=== PATIENT | male | born 1950 | race Caucasian/White ===

== ENCOUNTER → 2018-04-15 10:34 | Outpatient (CLI) | payer MEDICARE, OTHER, SELFPAY ==
[2018-04-15 11:24] LABS: Add Manual Diff / Slide Review NO; Basophils Percent Auto 0.3 % (0-2); Eosinophils Percent Auto 3.9 % (2-4); Hematocrit 44.8 % (41-53); Hemoglobin 15.4 g/dL (13.5-17.5); Lymphocytes Percent Auto 19.3 % (25-40); Mean Corpuscular HGB Conc 34.4 % (30-36); Mean Corpuscular Hemoglobin 32.1 PG (26-34); Mean Corpuscular Volume 93.3 fL (80-100); Monocytes Percent Auto 7.1 % (3-14); Neutrophils Absolute Auto 5800 /uL (3000-5900); Neutrophils Percent Auto 69.4 % (50-75); Platelet Count 176 X10^3/uL (150-400); Red Cell Distribution Width 13.2 % (11.6-14.8); White Blood Cell Count 8.4 X10^3/uL (4.5-11.0)
[2018-04-15 11:35] LABS: Alanine Aminotransferase 17 IU/L (21-72); Albumin 4.3 g/dL (3.5-5.0); Albumin Globulin Ratio 1.7 (1.0-2.8); Alkaline Phosphatase 40 U/L (38-126); Aspartate Aminotransferase 21 IU/L (17-59); Bilirubin Total 0.8 mg/dL (0.2-1.3); Blood Urea Nitrogen 14 mg/dL (9-20); Calcium 9.4 mg/dL (8.4-10.2); Carbon Dioxide 31 mmol/L (22-32); Chloride 107 mmol/L (98-107); Cholesterol 138 mg/dL (140-199); Estimated Glomerular Filt Rate > 60.0 mL/min (>60); Globulin 2.6 g/dL (1.7-4.1); Glucose 74 mg/dL (80-110); HDL Cholesterol 58 mg/dL (40-60); HEMOLYSIS < 15 (0-50); LDL Cholesterol Calculated 66 mg/dL (<100); Potassium 4.4 mmol/L (3.4-5.1); Sodium 144 mmol/L (137-145); Total Protein 6.9 g/dL (6.3-8.2); Triglycerides 72 mg/dL (35-150)
== END ==
PROVIDERS: PCP Internal Medicine; Visit Provider Internal Medicine
DX: G20 Parkinson's disease (principal); I10 Essential (primary) hypertension; E78.00 Pure hypercholesterolemia, unspecified; Z12.5 Encounter for screening for malignant neoplasm of prostate
CPT/HCPCS: 36415; 80053; 80061; 85025; G0103

== ENCOUNTER → 2019-04-08 09:26 | Outpatient (CLI) | payer MEDICARE, SELFPAY ==
[2019-04-08 10:36] LABS: Add Manual Diff / Slide Review NO; Basophils Absolute Auto 0 /uL (0-100); Basophils Percent Auto 0.2 % (0-2); Eosinophils Absolute Auto 300 /uL (0-450); Eosinophils Percent Auto 4.2 % (2-4); Hematocrit 45.3 % (41-53); Hemoglobin 16.1 g/dL (13.5-17.5); Lymphocytes Absolute Auto 1800 /uL (1100-4500); Lymphocytes Percent Auto 24.8 % (25-40); Mean Corpuscular HGB Conc 35.6 % (30-36); Mean Corpuscular Volume 92.8 fL (80-100); Monocytes Absolute Auto 600 /uL (0-900); Monocytes Percent Auto 7.6 % (3-14); Neutrophils Absolute Auto 4600 /uL (1500-7000); Neutrophils Percent Auto 63.2 % (50-75); Platelet Count 177 X10^3/uL (150-400); Red Blood Cell Count 4.88 X10^6/uL (4.5-5.9); Red Cell Distribution Width 13.1 % (11.6-14.8); White Blood Cell Count 7.3 X10^3/uL (4.5-11.0)
[2019-04-08 10:41] LABS: HEMOLYSIS < 15 (0-50); Sodium 139 mmol/L (137-145)
[2019-04-08 10:43] LABS: Alanine Aminotransferase 10 IU/L (21-72); Albumin 4.5 g/dL (3.5-5.0); Albumin Globulin Ratio 1.6 (1.0-2.8); Alkaline Phosphatase 48 U/L (38-126); Aspartate Aminotransferase 23 IU/L (17-59); BUN Creatinine Ratio 18.9 (6-22); Bilirubin Total 0.8 mg/dL (0.2-1.3); Blood Urea Nitrogen 17 mg/dL (9-20); Calcium 9.6 mg/dL (8.4-10.2); Carbon Dioxide 27 mmol/L (22-32); Chloride 103 mmol/L (98-107); Cholesterol 150 mg/dL (140-199); Estimated Glomerular Filt Rate > 60.0 mL/min (>60); Globulin 2.8 g/dL (1.7-4.1); Glucose 93 mg/dL (80-110); HDL Cholesterol 61 mg/dL (40-60); LDL Cholesterol Calculated 76 mg/dL (<100); Potassium 4.4 mmol/L (3.4-5.1); Total Protein 7.3 g/dL (6.3-8.2); Triglycerides 67 mg/dL (35-150)
[2019-04-08 11:12] LABS: Prostate Specific Antigen Scrn 1.03 ng/mL (0.1-4.0)
== END ==
PROVIDERS: PCP Internal Medicine; Visit Provider Internal Medicine
DX: Z12.5 Encounter for screening for malignant neoplasm of prostate (principal); I10 Essential (primary) hypertension; E78.00 Pure hypercholesterolemia, unspecified
CPT/HCPCS: 36415; 80053; 80061; 85025; G0103

== ENCOUNTER → 2020-03-25 06:47 | Outpatient (CLI) | payer MEDICARE, SELFPAY ==
[2020-03-25 08:23] LABS: Add Manual Diff / Slide Review NO; Basophils Absolute Auto 0 /uL (0-100); Basophils Percent Auto 0.5 % (0-2); Eosinophils Absolute Auto 500 /uL (0-450); Eosinophils Percent Auto 7.8 % (2-4); Hematocrit 43.5 % (41-53); Hemoglobin 14.6 g/dL (13.5-17.5); Lymphocytes Absolute Auto 1800 /uL (1100-4500); Lymphocytes Percent Auto 27.4 % (25-40); Mean Corpuscular HGB Conc 33.6 % (30-36); Mean Corpuscular Hemoglobin 31.8 PG (26-34); Mean Corpuscular Volume 94.7 fL (80-100); Monocytes Absolute Auto 600 /uL (0-900); Monocytes Percent Auto 8.4 % (3-14); Neutrophils Absolute Auto 3800 /uL (1500-7000); Neutrophils Percent Auto 55.9 % (50-75); Platelet Count 166 X10^3/uL (150-400); Red Blood Cell Count 4.59 X10^6/uL (4.5-5.9); Red Cell Distribution Width 13.2 % (11.6-14.8); White Blood Cell Count 6.7 X10^3/uL (4.5-11.0)
[2020-03-25 08:35] LABS: Alanine Aminotransferase 27 IU/L (<50); Albumin 4.3 g/dL (3.5-5.0); Albumin Globulin Ratio 1.6 (1.0-2.8); Alkaline Phosphatase 51 U/L (38-126); Aspartate Aminotransferase 33 IU/L (17-59); BUN Creatinine Ratio 19.8 (6-22); Bilirubin Total 0.9 mg/dL (0.2-1.3); Blood Urea Nitrogen 19 mg/dL (9-20); Calcium 9.3 mg/dL (8.4-10.2); Carbon Dioxide 30 mmol/L (22-32); Chloride 106 mmol/L (98-107); Cholesterol 153 mg/dL (140-199); Estimated Glomerular Filt Rate > 60.0 mL/min (>60); Globulin 2.7 g/dL (1.7-4.1); Glucose 92 mg/dL (80-110); HDL Cholesterol 68 mg/dL (40-60); HEMOLYSIS 16 (0-50); LDL Cholesterol Calculated 71 mg/dL (<100); Potassium 4.2 mmol/L (3.4-5.1); Sodium 139 mmol/L (137-145); Triglycerides 70 mg/dL (35-150)
== END ==
PROVIDERS: PCP Internal Medicine; Referring Provider Internal Medicine; Visit Provider Internal Medicine
DX: E78.00 Pure hypercholesterolemia, unspecified (principal)
CPT/HCPCS: 36415; 80053; 80061; 85025

== ENCOUNTER 2023-12-12 10:30 | Outpatient (RCR) | payer MEDICARE, SELFPAY ==
--- NOTE | 2023-10-01 15:32 | ST.OPIE ---
Visit Care Team Role Provider Type Nila Albarran PA-C Family Provider Advanced Damage Inside Adjuster Primary Care Provider Specialty: Medical Address: [address] [place], [address] Email: Rachell Mullins MD Attending Provider Non-Staff Referring Provider Specialty: Neurology Address: [address] [place], [address] Email: Speech-Language Pathology Initial Evaluation FIRE HOSE CURER Motor Speech Evaluation Start: 10/01/23 12:56 Freq: Status: Active Protocol: Document 10/01/23 14:10 CG (Rec: 10/01/23 15:20 CG [id number]) Motor Speech Evaluation Session Time Visit Start Time 13:00 Visit Stop Time 14:00 Total Visit Minutes 60 Visit Information Visit Number 1 Plan of Care Dates 10/01/23-12/30/23 Setting Setting Outpatient Care Next Note Type Next Note Type Treatment Note Patient History Source: [employer] ([employer]). Patient History Rao Fitzpatrick is a 73 year old male presenting to this clinic for an evaluation of motor speech and voice due to concerns of reduced intelligibility and loudness secondary to Parkinson's. He was accompanied by his , Gwen. When asked to discuss his concerns with speech, he expressed that his speech is mumbly and quiet. His has difficulty hearing him and understanding his speech. She also wears hearing aids, but her pattern marker reports that her hearing is WFL with hearing aids. He also reports that he has had some difficulty swallowing. Occasionally, he feels like he cannot initiate a swallow on solid foods. He reports no difficulties with liquids. He has not had an MBSS, nor a clinical swallow evaluation; he has never seen an FIRE HOSE CURER in the past. Currently has a referral in place to start PT in October. He and his have heard of the [employer] [facility]/ Speak Out programs but have not pursued these. His goal is to be able to be heard and understood by others, particularly his . Referral Referring Physician Dr. Rachell uMllins Reason for Referral Parkinson's, voice concerns Mental Status Mental Status Alert,Responsive,Cooperative Subjective Observations Subjective Pt presents with his for speech and voice evaluation. He presents with muffled sounding speech with imprecise consonants, variable rate ( often increased rate) and significantly reduced loudness . Additionally, he presents with shuffling gait and had difficulty initiating walking gait. It took him an extended period of time to be able to ambulate to the evaluation room due to gait difficulties. He presents as a significant fall risk. Oral Motor Lips Function Mild Impairment Pucker Reduced coordination and ROM Retraction Reduced coordination and ROM Alternating pucker/retraction Reduced coordination and ROM Involuntary Movement N/A Tongue Function Mild Impairment Observations at rest Involuntary movements 2/ PD Protrusion Appears WFL Lateralization Appears WFL Involuntary Movement Yes Respiration/Phonation Phonation Quality Breathy Function Moderately Impaired Loudness Reduced Loudness,Variable Loudness Steadiness Unsteady, variable strength of phonation Conversation Quality Breathy Duration Moderately Impaired Function Moderately Impaired Loudness Reduced Loudness,Variable Loudness Diadochokinetic Rates P^ Comments Reduced duration, short spurts between breaths T^ Comments Reduced duration, short spurts between breaths K^ Comments Reduced duration, short spurts between breaths P^T^K^ Comments Reduced duration, short spurts between breaths Speech Intelligibility Sentence Severity Moderately Impaired Conversation Severity Severely Impaired Awareness/Strategy Use Description Type of awareness/use Aware but unable to use Findings Details Motor Speech Function Moderate-Severe Impairment Type of Impairment Hypokinetic dysarthria Assessment Prognosis Rehabilitation Potential Fair Recommendations Treatment Recommended Yes Frequency 1x/week Duration 3 months Short Term Goals 1. 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 2. Pt will benefit from instruction in use of pacing strip to increase intelligibility. Manager Training Goals 1. Pt will increase intelligibility to 90% during conversational tasks. FIRE HOSE CURER Voice Resonance Evaluation Start: 10/01/23 12:56 Freq: Status: Active Protocol: Document 10/01/23 14:10 CG (Rec: 10/01/23 15:20 CG [id number]) Voice and Resonance Assessment Hearing Hearing Level Hearing Aids Auditory History Hearing aid in L ear. Deaf in R ear. Vision Vision Status Impaired Comments Wears glasses [place] Langauge Language(s) Spoken in the Home Ukrainian Educational Status Education Level Master's degree Occupational Status Occupation Status Retired Previous Therapy Previous Speech-Language Therapy No - Laryngeal Performance Maximum Phonation Time MPT Norms: Women (15-25) Men (25-35) Loudness (50-60 dB); Speaking Rate: Oral Reading of Sentences (190 Words Per Minute); Oral Reading of Paragraphs (160-170 WPM); Speaking Rate in Conversation (150-250 WPM) Maximum Phonation Time 9.2 Maximum Phonation Time Reduced Maximum Phonation Time Comments Reduced max phonation time, but increased loudness during phonation tasks. Pitch [place] Pitch [place] Reduced Range,Cessation of Voicing Muscle Tension Assessment Muscle Tension Assessment Neck,Shoulders Breath Support Breath Support At Rest Thoracic,Clavicular Breath Support Sustained Phonation Thoracic,Clavicular Breath Support Conversation Thoracic,Clavicular Speaks on Room Air Yes Postural Alignment Stance Slumped Voice Pitch Range Norms: Women (100-300 Hz) Men (70-250 Hz) Fundamental Frequency Norms: Women (Mean: 225 Hz; Range: 155-334 Hz) Men ( Mean: 128 Hz; Range: 85-196 Hz) Voice Pitch Moderately Low Voice Loudness Severely Soft/Quiet Voice Phonatory-based Quality Breathy,Hoarse Paradoxical Vocal Fold Movement No Indications Therapeutic Techniques Therapy Tactics Hard Glottal Onset,Breath Support,Increase Loudness Prognosis Rehabilitation Potential Fair - Recommendations Treatment Recommended Yes Short Term Goals 1. Pt will complete diaphragmatic inhale/exhale exercises at a ratio of 6s inhale, 12s exhale on /s/. 2. Pt will complete home exercises to increase loudness (i.e. PhorTE, LSVT) in 80% of opportunities as measured by patient report. 3. Pt will increase maximum sustained phonation time to 12 seconds with an average intensity level of at least 70dB. 4. Pt and spouse will benefit from education re vocal health and physiology of voicing in order to increase awareness of deficits and self-monitor voice performance. 5. Pt will complete outpatient Modified Barium Swallow Study for objective evaluation of swallow function. Snf Goals 1. Pt will increase sustained phonation time to 15s with an average intensity of at least 75dB. Referrals Voice/Resonance Other Referral MBSS order recommended
--- NOTE | 2023-10-01 15:33 | ST.OPPOC ---
Physical, Occupational & Speech Therapy At [facility] Visit Care Team Role Provider Type Nila Albarran PA-C Family Provider Advanced Recreation Therapist Primary Care Provider Address: [address] [place], [address] Rachell Mullins MD Attending Provider Non-Staff Referring Provider Address: [address] [place], [address] Speech Pathology Plan of Care Plan of Care Dates 10/01/23-12/30/[address] Rachell Mullins Patient History Rao Fitzpatrick is a 73 year old male presenting to this clinic for an evaluation of motor speech and voice due to concerns of reduced intelligibility and loudness secondary to Parkinson's. He was accompanied by his , Gwen. When asked to discuss his concerns with speech, he expressed that his speech is mumbly and quiet. His has difficulty hearing him and understanding his speech. She also wears hearing aids, but her dairy store manager reports that her hearing is WFL with hearing aids. He also reports that he has had some difficulty swallowing. Occasionally, he feels like he cannot initiate a swallow on solid foods. He reports no difficulties with liquids. He has not had an MBSS, nor a clinical swallow evaluation; he has never seen an MUSIC BOX MECHANIC in the past . Currently has a referral in place to start PT in October. He and his have heard of the [facility] [employer] [facility]/ Speak Out programs but have not pursued these. His goal is to be able to be heard and understood by others, particularly his . Voice/Resonance Prognosis Fair Voice/Resonance Yes Recommendations Short Term Goals 1. Pt will complete diaphragmatic inhale/exhale exercises at a ratio of 6s inhale, 12s exhale on /s/. 2. Pt will complete home exercises to increase loudness (i.e. PhorTE, LSVT) in 80% of opportunities as measured by patient report. 3. Pt will increase maximum sustained phonation time to 12 seconds with an average intensity level of at least 70dB. 4. Pt and spouse will benefit from education re vocal health and physiology of voicing in order to increase awareness of deficits and self- monitor voice performance. 5. Pt will complete outpatient Modified Barium Swallow Study for objective evaluation of swallow function. Short Term Goals 1. 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 2. Pt will benefit from instruction in use of pacing strip to increase intelligibility. Power Wheelchair Mechanic Goals 1. Pt will increase sustained phonation time to 15s with an average intensity of at least 75dB. Comment: Electronically Signed by: KAYLAH Maddox 10/01/23 3812 If you are in agreement with this Plan of Care, please return a signed and dated copy. I have reviewed this Plan of Care and certify that the skilled therapy services above are required to meet the patient?s needs. Physician Signature Date Printed Name and Credentials Printed Name and Credentials
--- NOTE | 2023-10-09 17:08 | ST.OPTN ---
Visit Care Team Role Provider Type Nila Albarran PA-C Family Provider Advanced Client Services Specialist Primary Care Provider Address: [address] [place] [address], [id number] Rachell Mullins MD Attending Provider Non-Staff Referring Provider Address: [address] [place], [address] CASTING SUPERVISOR Treatment Note CASTING SUPERVISOR Treatment Note Start: 10/09/23 16:58 Freq: Status: Active Protocol: Document 10/09/23 16:59 CG (Rec: 10/09/23 17:08 CG [id number]) Speech Pathology Treatment Note Session Time Visit Start Time 13:00 Visit Stop Time 13:48 Total Visit Minutes 48 Visit Information Visit Number 2 Plan of Care Dates 10/01/23-12/30/23 Next Note Type Next Note Type Treatment Note General Information Patient History Rao Fitzpatrick is a 73 year old male presenting to this clinic for an evaluation of motor speech and voice due to concerns of reduced intelligibility and loudness secondary to Parkinson's. He was accompanied by his , Gwen. When asked to discuss his concerns with speech, he expressed that his speech is mumbly and quiet. His has difficulty hearing him and understanding his speech. She also wears hearing aids, but her scratcher tender reports that her hearing is WFL with hearing aids. He also reports that he has had some difficulty swallowing. Occasionally, he feels like he cannot initiate a swallow on solid foods. He reports no difficulties with liquids. He has not had an MBSS, nor a clinical swallow evaluation; he has never seen an CASTING SUPERVISOR in the past. Currently has a referral in place to start PT in October. He and his have heard of the [facility] [employer] [facility]/ Speak Out programs but have not pursued these. His goal is to be able to be heard and understood by others, particularly his . Subjective Observations/Patient Presentation Pt arrived on time to his appointment, which he attended independently. He utilized a wheelchair to mobilize to the treatment room this session. His speech continues to present as severely quiet, mumbled, and unintelligible. Objective Short Term Goals 1. 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 2. Pt will benefit from instruction in use of pacing strip to increase intelligibility. 3. Pt will complete diaphragmatic inhale/exhale exercises at a ratio of 6s inhale, 12s exhale on 4. Pt will complete home exercises to increase loudness (i.e. PhorTE, LSVT) in 80% of opportunities as measured by patient report. 5. Pt will increase maximum sustained phonation time to 12 seconds with an average intensity level of at least 70dB. 6. Pt and spouse will benefit from education re vocal health and physiology of voicing in order to increase awareness of deficits and self- monitor voice performance. 7. Pt will complete outpatient Modified Barium Swallow Study for objective evaluation of swallow function. [facility] Goals 1. Pt will increase sustained phonation time to 15s with an average intensity of at least 75dB. Treatment Activities Initiated instruction in subsystems of voice and speech , specifically respiratory system. Guided pt through exercises to bring awareness to diaphragmatic movement. Practiced abdominal/ diaphragmatic breathing. Initiated inhale/exhale exercise. Assessment Impairments Identified Speech,Voice Progress Towards Goals Slow Progress Assessment of Improvement Pt had difficulty controlling diaphragmatic movements to complete diaphragmatic breathing exercises. He was able to bring awareness to respiratory musculature to identify clavicular vs abdominal breathing. During inhale/exhale exercise, pt was able to complete a 5s inhale, 10s exhale on /s/. Briefly discussed using finger tapping for pacing, but pt did not seem to understand accurate execution; further training needed. Pt was receptive to home exercise program for respiration. Reviewed with Patient Home Exercise Program Patient/Caregiver Understanding Fair Plan Length of Session 30 Minutes Therapeutic Contents Articulation Training,Client Education,Home Exercise Program,Intelligibility,Voice Training
--- NOTE | 2023-10-18 15:39 | ST.OPTN ---
Visit Care Team Role Provider Type Nila Albarran PA-C Family Provider Advanced Manufacturing Maintenance Technician Primary Care Provider Address: [address] [place] [address], [address] Rachell Mullins MD Attending Provider Non-Staff Referring Provider Address: [address] [place], [address] IT SUPPORT CONSULTANT Treatment Note IT SUPPORT CONSULTANT Treatment Note Start: 10/09/23 16:58 Freq: Status: Active Protocol: Document 10/18/23 13:13 CG (Rec: 10/18/23 15:39 CG [id number]) Speech Pathology Treatment Note Session Time Visit Start Time 09:47 Visit Stop Time 10:25 Total Visit Minutes 38 Visit Information Visit Number 3 Plan of Care Dates 10/01/23-12/30/23 Setting Treatment Setting Outpatient Care Next Note Type Next Note Type Treatment Note General Information Patient History Rao Fitzpatrick is a 73 year old male presenting to this clinic for an evaluation of motor speech and voice due to concerns of reduced intelligibility and loudness secondary to Parkinson's. He was accompanied by his , Gwen. When asked to discuss his concerns with speech, he expressed that his speech is mumbly and quiet. His has difficulty hearing him and understanding his speech. She also wears hearing aids, but her shirt finisher reports that her hearing is WFL with hearing aids. He also reports that he has had some difficulty swallowing. Occasionally, he feels like he cannot initiate a swallow on solid foods. He reports no difficulties with liquids. He has not had an MBSS, nor a clinical swallow evaluation; he has never seen an IT SUPPORT CONSULTANT in the past. Currently has a referral in place to start PT in October. He and his have heard of the [employer] [facility]/ Speak Out programs but have not pursued these. His goal is to be able to be heard and understood by others, particularly his . Subjective Observations/Patient Presentation Pt arrived on time to his appointment, which he attended with his . He utilized a wheelchair to mobilize to the treatment room this session. His speech continues to present as severely quiet, mumbled, and unintelligible. Objective Short Term Goals 1. 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 2. Pt will benefit from instruction in use of pacing strip to increase intelligibility. 3. Pt will complete diaphragmatic inhale/exhale exercises at a ratio of 6s inhale, 12s exhale on 4. Pt will complete home exercises to increase loudness (i.e. PhorTE, LSVT) in 80% of opportunities as measured by patient report. 5. Pt will increase maximum sustained phonation time to 12 seconds with an average intensity level of at least 70dB. 6. Pt and spouse will benefit from education re vocal health and physiology of voicing in order to increase awareness of deficits and self- monitor voice performance. 7. Pt will complete outpatient Modified Barium Swallow Study for objective evaluation of swallow function. Bridge Painter Helper Goals 1. Pt will increase sustained phonation time to 15s with an average intensity of at least 75dB. Treatment Activities Reviewed home exercises for breathing coordination. Continued timed inhale/exhale exercise to build toward increasing time. Provided pt and spouse with education re Parkinson's and decreased intelligibility. Introduced PhoRTE exercises including sustained /a/ and functional phrases. Explained utilizing /m/ to facilitate facial/nasal resonance during sustained /a / (i.e. produce /ma/ instead of /a/). Provided written instructions for home exercise program. Assessment Patient Response to Treatment Good Impairments Identified Speech,Voice Progress Towards Goals Slow Progress Assessment of Improvement Pt reported that he has been practicing abdominal breathing , and felt it was particularly helpful to put a book on his stomach and watch it rise as he breathed in to ensure he was breathing correctly. During inhale/exhale exercise, pt was able to complete a 6s inhale, 12s exhale on /s/ in 65% of trials. Pt agreeable to attempt increasing this to 8s;16s ratio with home exercise. Pt was able to produce clear, loud sustained /a/; however, tension was noted in neck/ shoulder muscles. Given max verbal cues and choral practice, pt was able to utilize /m/ to facilitate nasal resonance for production , though some tension remains. With functional phrases, pt initially produced phrases with slurred consonants, though volume was adequate. IT SUPPORT CONSULTANT utilized motor cue of tapping table to pace pt production of functional phrases. With tapping method, intelligibility increased. Pt appeared slightly frustrated that he feels he is speaking clearly but that his does not understand him. He feels that this is because she is not paying attention to him when he is talking. Explained that the pt's speech has become less intelligible as a result of Parkinson's, and that intelligibility is reduced even to treating IT SUPPORT CONSULTANT. Pt seemed surprised but accepting that his speech really was not clearly intelligible even to people other than his . Encouraged pt and to take a collaborative approach on one team against the symptoms, as opposed to being on competing sides of the issue, which pt and expressed they understood. Pt is concerned about when home practice will generalize to everyday speech. Explained that it will take time to re- callibrate pt's volume and articulation. Reviewed with Patient Progress Being Made,Home Exercise Program Patient/Caregiver Understanding Fair Plan Length of Session 30 Minutes Therapeutic Contents Articulation Training,Client Education,Home Exercise Program,Intelligibility,Voice Training Provided Patient/Caregiver Instruction Home Exercise Program
--- NOTE | 2023-10-23 11:34 | ST.OPTN ---
Visit Care Team Role Provider Type Nila Albarran PA-C Family Provider Advanced Curing Press Maintainer Primary Care Provider Address: [address] [place] [address], [id number] Rachell Mullins MD Attending Provider Non-Staff Referring Provider Address: [address] [place], [address] HAY BUCKLER Treatment Note HAY BUCKLER Treatment Note Start: 10/09/23 16:58 Freq: Status: Active Protocol: Document 10/23/23 11:25 CG (Rec: 10/23/23 11:34 CG [id number]) Speech Pathology Treatment Note Session Time Visit Start Time 09:47 Visit Stop Time 10:25 Total Visit Minutes 38 Visit Information Visit Number 4 Plan of Care Dates 10/01/23-12/30/23 Setting Treatment Setting Outpatient Care Next Note Type Next Note Type Treatment Note General Information Patient History Rao Fitzpatrick is a 73 year old male presenting to this clinic for an evaluation of motor speech and voice due to concerns of reduced intelligibility and loudness secondary to Parkinson's. He was accompanied by his , Gwen. When asked to discuss his concerns with speech, he expressed that his speech is mumbly and quiet. His has difficulty hearing him and understanding his speech. She also wears hearing aids, but her sales representative livestock reports that her hearing is WFL with hearing aids. He also reports that he has had some difficulty swallowing. Occasionally, he feels like he cannot initiate a swallow on solid foods. He reports no difficulties with liquids. He has not had an MBSS, nor a clinical swallow evaluation; he has never seen an HAY BUCKLER in the past. Currently has a referral in place to start PT in October. He and his have heard of the [facility]/ Speak Out programs but have not pursued these. His goal is to be able to be heard and understood by others, particularly his . Subjective Observations/Patient Presentation Pt arrived on time to his appointment, which he attended with his . He utilized a wheelchair to mobilize to the treatment room this session. His speech continues to present as severely quiet, mumbled, and unintelligible. Objective Short Term Goals 1. 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 2. Pt will benefit from instruction in use of pacing strip to increase intelligibility. 3. Pt will complete diaphragmatic inhale/exhale exercises at a ratio of 6s inhale, 12s exhale on 4. Pt will complete home exercises to increase loudness (i.e. PhorTE, LSVT) in 80% of opportunities as measured by patient report. 5. Pt will increase maximum sustained phonation time to 12 seconds with an average intensity level of at least 70dB. 6. Pt and spouse will benefit from education re vocal health and physiology of voicing in order to increase awareness of deficits and self- monitor voice performance. 7. Pt will complete outpatient Modified Barium Swallow Study for objective evaluation of swallow function. Fertilizer Supervisor Goals 1. Pt will increase sustained phonation time to 15s with an average intensity of at least 75dB. Treatment Activities Reviewed home exercises for breathing coordination. Continued timed inhale/exhale exercise to build toward increasing time, with emphasis on controlled inhale pace. Completed trials of sustained /a/ with feedback on intensity level. Practiced having conversation with a metronome set at 70BPM, tapping to pace out words in conversation. Provided written instructions for home exercise program. Assessment Patient Response to Treatment Good Impairments Identified Speech,Voice Progress Towards Goals Slow Progress Assessment of Improvement Pt reported that he has been practicing breathing exercises , but had difficulty reaching 16 second exhale. During trials, he appeared to be inhaling too quickly. Practiced focusing on slow, controlled inhale and instructed pt to practice this at home to reach 8s inhale duration. Sustained /a/ trials were completed at an average intensity of 80.4dB and average duration of 8.3 seconds. Pt did come up with list of functional phrases to practice . High pitch functional phrases were completed at 83dB and low pitch at 80dB. During low pitch phrases, pt 's speech became more mumbled and difficult to understand. Recommended adding tapping for pacing during functional phrases exercise. During paced conversational practice, pt had difficulty keeping time with metronome for pacing. However, even with a decreased degree of accuracy with pacing activity, his intelligibility increased significantly during conversation, from an average of about 60% without pacing to about 80% with pacing. Recommended practicing having a conversation with a metronome at home. Discussed recording pt's speech for self-monitoring. Pt was instructed to record his speech during a conversation at home and write down what he notices about it . Reviewed with Patient Progress Being Made,Home Exercise Program Patient/Caregiver Understanding Fair Plan Length of Session 30 Minutes Therapeutic Contents Articulation Training,Client Education,Home Exercise Program,Intelligibility,Voice Training Provided Patient/Caregiver Instruction Home Exercise Program
--- NOTE | 2023-11-07 13:10 | ST.OPTN ---
Visit Care Team Role Provider Type Nila Albarran PA-C Family Provider Advanced Contestant Coordinator Primary Care Provider Address: [address] [place] [address], [id number] Rachell Mullins MD Attending Provider Non-Staff Referring Provider Address: [address] [place], [address] ABSTRACT WRITER Treatment Note ABSTRACT WRITER Treatment Note Start: 10/09/23 16:58 Freq: Status: Active Protocol: Document 11/07/23 12:58 CG (Rec: 11/07/23 13:10 CG [id number]) Speech Pathology Treatment Note Session Time Visit Start Time 12:00 Visit Stop Time 12:58 Total Visit Minutes 58 Visit Information Visit Number 5 Plan of Care Dates 10/01/23-12/30/23 Setting Treatment Setting Outpatient Care Next Note Type Next Note Type Treatment Note General Information Patient History Rao Fitzpatrick is a 73 year old male presenting to this clinic for an evaluation of motor speech and voice due to concerns of reduced intelligibility and loudness secondary to Parkinson's. He was accompanied by his , Gwen. When asked to discuss his concerns with speech, he expressed that his speech is mumbly and quiet. His has difficulty hearing him and understanding his speech. She also wears hearing aids, but her library paraprofessional reports that her hearing is WFL with hearing aids. He also reports that he has had some difficulty swallowing. Occasionally, he feels like he cannot initiate a swallow on solid foods. He reports no difficulties with liquids. He has not had an MBSS, nor a clinical swallow evaluation; he has never seen an ABSTRACT WRITER in the past. Currently has a referral in place to start PT in October. He and his have heard of the [facility]/ Speak Out programs but have not pursued these. His goal is to be able to be heard and understood by others, particularly his . Subjective Observations/Patient Presentation Pt arrived on time to his appointment, which he attended with his . He utilized a wheelchair to mobilize to the treatment room this session. His speech continues to present as severely quiet, mumbled, and unintelligible. However, pt appears to have increased awareness of his speech intelligibility being decreased. Objective Short Term Goals 1. 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 2. Pt will benefit from instruction in use of pacing strip to increase intelligibility. 3. Pt will complete diaphragmatic inhale/exhale exercises at a ratio of 6s inhale, 12s exhale on 4. Pt will complete home exercises to increase loudness (i.e. PhorTE, LSVT) in 80% of opportunities as measured by patient report. 5. Pt will increase maximum sustained phonation time to 12 seconds with an average intensity level of at least 70dB. 6. Pt and spouse will benefit from education re vocal health and physiology of voicing in order to increase awareness of deficits and self- monitor voice performance. 7. Pt will complete outpatient Modified Barium Swallow Study for objective evaluation of swallow function. Longterm Goals 1. Pt will increase sustained phonation time to 15s with an average intensity of at least 75dB. Treatment Activities Initiated session by recording conversation, specifically recording the pt's speech, with playback to increase pt awareness to his own speech intelligibility. Re-introduced tapping at 70bpm and verbal cues for increased loudness. Practiced functional phrases via choral production with ABSTRACT WRITER , switching to pt independent production with ABSTRACT WRITER feedback and with pt giving himself grades on each production. Reviewed takeaways from tx today. Provided written instructions for home exercise program. Assessment Patient Response to Treatment Good Impairments Identified Speech,Voice Progress Towards Goals Slow Progress Assessment of Improvement Pt reported that he had a fall last week which resulted in him having to call an ambulance as he struck his ribcage during the fall. This prevented him from doing some of the breathing and voice exercises. Pt is concerned that his progress is too slow. ABSTRACT WRITER reassured pt that there is still time to make progress if HEP is followed, and especially given increases self-awareness and insight which the pt achieved today. After pt recording, pt listened to his own speech and said, That was horrible. It was much different than I thought it was. Reassured pt that it is not his fault that he perceives his own speech differently than outside listeners. Pt judged his intelligibility to be about a 2 out of [address]. After re- introducing tapping strategy, pt practiced producing sentences with tapping and increased volume, then listened to recording of speech with these strategies. Intelligibility was deemed to have increased to 6 out of 10 according to the pt (ABSTRACT WRITER and pt's concurred). Discussed that the two stewart components in increasing the pt's intelligibility are volume and pacing. Pt appears to have vastly increased awareness of his own deficits and the need for strategies for intelligibility following this exercise. Reviewed breathing exercise ( inhale/exhale at 1:2 ratio). Pt was able to complete 8s inhale, 16s exhale independently today. Reviewed progress and discussed setting aside one hour each day during which pt' s , Gwen, can remind pt unlimited times to increase volume and decrease speed of speech in order to increase intelligibility. Pt and agreeable to home exercises. Pt's progress with intelligibility is slow, partially due to hinderances to completing HEP given recent fall, but his insight is increasing significantly compared to initial evaluation , which is positive for prognosis. Sustained /a/ trials were completed at an average intensity of 80.4dB and average duration of 8.3 seconds. Pt did come up with list of functional phrases to practice . High pitch functional phrases were completed at 83dB and low pitch at 80dB. During low pitch phrases, pt 's speech became more mumbled and difficult to understand. Recommended adding tapping for pacing during functional phrases exercise. During paced conversational practice, pt had difficulty keeping time with metronome for pacing. However, even with a decreased degree of accuracy with pacing activity, his intelligibility increased significantly during conversation, from an average of about 60% without pacing to about 80% with pacing. Recommended practicing having a conversation with a metronome at home. Discussed recording pt's speech for self-monitoring. Pt was instructed to record his speech during a conversation at home and write down what he notices about it . Reviewed with Patient Progress Being Made,Home Exercise Program Patient/Caregiver Understanding Fair Plan Length of Session 30 Minutes Therapeutic Contents Articulation Training,Client Education,Home Exercise Program,Intelligibility,Voice Training Provided Patient/Caregiver Instruction Home Exercise Program
--- NOTE | 2023-11-22 16:04 | ST.OPTN ---
Visit Care Team Role Provider Type Nila Albarran PA-C Family Provider [employer] Truck Driver Primary Care Provider Address: [address] [place] [address], [id number] Rachell Mullins MD Attending Provider Non-Staff Referring Provider Address: [address] [place], [address] BARGE WORKER Treatment Note BARGE WORKER Treatment Note Start: 10/09/23 16:58 Freq: Status: Active Protocol: Document 11/22/23 14:54 CG (Rec: 11/22/23 16:03 CG [id number]) Speech Pathology Treatment Note Session Time Visit Start Time 13:45 Visit Stop Time 14:35 Total Visit Minutes 50 Visit Information Visit Number 6 Plan of Care Dates 10/01/23-12/30/23 Setting Treatment Setting Outpatient Care Next Note Type Next Note Type Treatment Note General Information Patient History Rao Fitzpatrick is a 73 year old male presenting to this clinic for an evaluation of motor speech and voice due to concerns of reduced intelligibility and loudness secondary to Parkinson's. He was accompanied by his , Gwen. When asked to discuss his concerns with speech, he expressed that his speech is mumbly and quiet. His has difficulty hearing him and understanding his speech. She also wears hearing aids, but her hospital sales representative reports that her hearing is WFL with hearing aids. He also reports that he has had some difficulty swallowing. Occasionally, he feels like he cannot initiate a swallow on solid foods. He reports no difficulties with liquids. He has not had an MBSS, nor a clinical swallow evaluation; he has never seen an BARGE WORKER in the past. Currently has a referral in place to start PT in October. He and his have heard of the [facility]/ Speak Out programs but have not pursued these. His goal is to be able to be heard and understood by others, particularly his . Subjective Observations/Patient Presentation Pt arrived on time to his appointment, which he attended with his . He utilized a wheelchair to mobilize to the treatment room this session. His speech continues to present as severely quiet, mumbled, and unintelligible. However, pt appears to have increased awareness of his speech intelligibility being decreased. Objective Short Term Goals 1. 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 2. Pt will benefit from instruction in use of pacing strip to increase intelligibility. 3. Pt will complete diaphragmatic inhale/exhale exercises at a ratio of 6s inhale, 12s exhale on 4. Pt will complete home exercises to increase loudness (i.e. PhorTE, LSVT) in 80% of opportunities as measured by patient report. 5. Pt will increase maximum sustained phonation time to 12 seconds with an average intensity level of at least 70dB. 6. Pt and spouse will benefit from education re vocal health and physiology of voicing in order to increase awareness of deficits and self- monitor voice performance. 7. Pt will complete outpatient Modified Barium Swallow Study for objective evaluation of swallow function. Fdc Goals 1. Pt will increase sustained phonation time to 15s with an average intensity of at least 75dB. Treatment Activities Initiated with discussion re plan of care and integrating the use of compensatory devices (ie personal amplification device, other assistive devices) paired with impairment-based rehabilitative exercises. Discussed trajectory of Parkinson's disease and pt goals for focus on communicative quality of life. Practiced functional phrases via back and forth production with BARGE WORKER, with ST modeling over-exaggerated annunciation and volume. Structured conversation practice in which BARGE WORKER provided visual cues of whiteboard (with [facility] [facility]) written on it) intermittently as needed. Reviewed takeaways from tx today. Assessment Patient Response to Treatment Good Impairments Identified Speech,Voice Progress Towards Goals Slow Progress Assessment of Improvement Pt is very concerned about his progress and feels that his cannot hear him at all and it is negatively impacting her quality of life. Pt does seem to present with maintained increase in self- awareness of deficits. Pt is interested in exploring amplification devices/other assistive devices for PD. BARGE WORKER researched after session and found some options, one of which would be out of pocket and one would be through insurance. Will follow up with [employer] to see whether they have DME amplification devices available. During paced conversational practice, pt had difficulty keeping slow pacing again this session. However, even with a decreased degree of accuracy with pacing activity, his intelligibility increased significantly during conversation, with BARGE WORKER judging the pt to be 95% intelligible . Pt was responsive to visual cue on whiteboard. Recommended continuing conversation practice at home. Discussed recording pt's speech for self-monitoring. Pt was instructed to record his speech exercises in order to increase awareness of his speed, volume, and articulation. Reviewed with Patient Progress Being Made,Home Exercise Program Patient/Caregiver Understanding Fair Plan Length of Session 30 Minutes Therapeutic Contents Articulation Training,Client Education,Home Exercise Program,Intelligibility,Voice Training Provided Patient/Caregiver Instruction Home Exercise Program
--- NOTE | 2023-11-28 12:23 | ST.OPTN ---
Visit Care Team Role Provider Type Nila Albarran PA-C Family Provider Advanced Welder Tech Primary Care Provider Address: [address] [place] [address], [phone] Rachell Mullins MD Attending Provider Non-Staff Referring Provider Address: [address] [place], [address] CLAY MINE CUTTING MACHINE OPERATOR Treatment Note CLAY MINE CUTTING MACHINE OPERATOR Treatment Note Start: 10/09/23 16:58 Freq: Status: Active Protocol: Document 11/28/23 12:06 CG (Rec: 11/28/23 12:23 CG [id number]) Speech Pathology Treatment Note Session Time Visit Start Time 10:30 Visit Stop Time 11:20 Total Visit Minutes 50 Visit Information Visit Number 7 Plan of Care Dates 10/01/23-12/30/23 Setting Treatment Setting Outpatient Care Next Note Type Next Note Type Treatment Note General Information Patient History Rao Fitzpatrick is a 73 year old male presenting to this clinic for an evaluation of motor speech and voice due to concerns of reduced intelligibility and loudness secondary to Parkinson's. He was accompanied by his , Gwen. When asked to discuss his concerns with speech, he expressed that his speech is mumbly and quiet. His has difficulty hearing him and understanding his speech. She also wears hearing aids, but her tank wagon driver reports that her hearing is WFL with hearing aids. He also reports that he has had some difficulty swallowing. Occasionally, he feels like he cannot initiate a swallow on solid foods. He reports no difficulties with liquids. He has not had an MBSS, nor a clinical swallow evaluation; he has never seen an CLAY MINE CUTTING MACHINE OPERATOR in the past. Currently has a referral in place to start PT in October. He and his have heard of the [facility]/ Speak Out programs but have not pursued these. His goal is to be able to be heard and understood by others, particularly his . Subjective Observations/Patient Presentation Pt arrived on time to his appointment, which he attended with his . He utilized a wheelchair to mobilize to the treatment room this session. His speech continues to present as severely quiet, mumbled, and unintelligible. However, pt appears to have increased awareness of his speech intelligibility being decreased. Objective Short Term Goals 1. 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 2. Pt will benefit from instruction in use of pacing strip to increase intelligibility. 3. Pt will complete diaphragmatic inhale/exhale exercises at a ratio of 6s inhale, 12s exhale on 4. Pt will complete home exercises to increase loudness (i.e. PhorTE, LSVT) in 80% of opportunities as measured by patient report. 5. Pt will increase maximum sustained phonation time to 12 seconds with an average intensity level of at least 70dB. 6. Pt and spouse will benefit from education re vocal health and physiology of voicing in order to increase awareness of deficits and self- monitor voice performance. 7. Pt will complete outpatient Modified Barium Swallow Study for objective evaluation of swallow function. Penitentiary Goals 1. Pt will increase sustained phonation time to 15s with an average intensity of at least 75dB. Treatment Activities Initiated with discussion re plan of care and integrating the use of compensatory devices (ie personal amplification device, other assistive devices) paired with impairment-based rehabilitative exercises. Discussed trajectory of Parkinson's disease and pt goals for focus on communicative quality of life. Discussed SpeechVive device; CLAY MINE CUTTING MACHINE OPERATOR to further look into a trial. Structured conversation practice in which CLAY MINE CUTTING MACHINE OPERATOR provided visual cues of whiteboard (with BIGGER AND LOUDER) written on it) intermittently as needed. Assessment Patient Response to Treatment Good Impairments Identified Speech,Voice Progress Towards Goals Slow Progress Assessment of Improvement Pt is very concerned about his progress and feels that his cannot hear him at all and it is negatively impacting her quality of life. Pt did purchase a personal amplification device, but his feels it causes him to sound echo-y, so she does not like it. Discussed possibly looking into a higher fidelity personal amplifier. Pt is interested in exploring SpeechVive device. However, he only has hearing in one ear , which means he may be unable to benefit from the device. Also discussed incorporating a Parkinson's support group for increased QOL. During paced conversational practice, pt had difficulty keeping slow pacing again this session. Pt is demonstrating significant difficulty with slowing his pacing. Instructed the pt to practice slow speech in the mirror while self monitoring his oral motor movements to ensure he is utilizing exaggerated muscle movements. Pt was responsive to visual cue on whiteboard, but unable to sustain loudness. Progress is slow with increased speech clarity, but pt awareness remains increased. Pt also remains open to trialing more compensatory strategies. Reviewed with Patient Progress Being Made,Home Exercise Program Patient/Caregiver Understanding Fair Plan Length of Session 30 Minutes Therapeutic Contents Articulation Training,Client Education,Home Exercise Program,Intelligibility,Voice Training Provided Patient/Caregiver Instruction Home Exercise Program
--- NOTE | 2023-12-05 12:06 | ST.OPTN ---
Visit Care Team Role Provider Type Nila Albarran PA-C Family Provider Advanced Health Information Assistant Primary Care Provider Address: [address] [place] [address], [phone] Rachell Mullins MD Attending Provider Non-Staff Referring Provider Address: [address] [place], [address] CARRIAGE OPERATOR Treatment Note CARRIAGE OPERATOR Treatment Note Start: 10/09/23 16:58 Freq: Status: Active Protocol: Document 12/05/23 11:55 CG (Rec: 12/05/23 12:06 CG [id number]) Speech Pathology Treatment Note Session Time Visit Start Time 09:45 Visit Stop Time 10:30 Total Visit Minutes 45 Visit Information Visit Number 8 Plan of Care Dates 10/01/23-12/30/23 Setting Treatment Setting Outpatient Care Next Note Type Next Note Type Treatment Note General Information Patient History Rao Fitzpatrick is a 73 year old male receiving voice/motor speech tx at this clinic due to concerns of reduced intelligibility and loudness secondary to Parkinson's. He was accompanied by his , Gwen. When asked to discuss his concerns with speech, he expressed that his speech is mumbly and quiet. His has difficulty hearing him and understanding his speech. She also wears hearing aids, but her washer machine reports that her hearing is WFL with hearing aids. He also reports that he has had some difficulty swallowing. Occasionally, he feels like he cannot initiate a swallow on solid foods. He reports no difficulties with liquids. He has not had an MBSS, nor a clinical swallow evaluation; he has never seen an CARRIAGE OPERATOR in the past. Currently has a referral in place to start PT in October. He and his have heard of the [facility]/ Speak Out programs but have not pursued these. His goal is to be able to be heard and understood by others, particularly his . Subjective Observations/Patient Presentation Pt arrived on time to his appointment, which he attended with his . He utilized a wheelchair to mobilize to the treatment room this session. His speech continues to present as severely quiet, mumbled, and unintelligible. However, pt appears to have increased awareness of his speech intelligibility being decreased. Objective Short Term Goals 1. 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 2. Pt will benefit from instruction in use of pacing strip to increase intelligibility. 3. Pt will complete diaphragmatic inhale/exhale exercises at a ratio of 6s inhale, 12s exhale on 4. Pt will complete home exercises to increase loudness (i.e. PhorTE, LSVT) in 80% of opportunities as measured by patient report. 5. Pt will increase maximum sustained phonation time to 12 seconds with an average intensity level of at least 70dB. 6. Pt and spouse will benefit from education re vocal health and physiology of voicing in order to increase awareness of deficits and self- monitor voice performance. 7. Pt will complete outpatient Modified Barium Swallow Study for objective evaluation of swallow function. Detention Goals 1. Pt will increase sustained phonation time to 15s with an average intensity of at least 75dB. Treatment Activities Initiated with discussion on trialing SpeechVive device at home. Provided written instructions for how to trial anjali before pursuing getting the device. Resumed tapping for pacing during functional phrases with increased cues from CARRIAGE OPERATOR for pacing. Due to difficulty with timing of motor movements, introduced a visual pacing board (dots spaced out on strip of cardstock). Resumed functional phrase practice with this visual aid. Structured conversation practice with pacing strip. Assessment Patient Response to Treatment Good Impairments Identified Speech,Voice Progress Towards Goals Slow Progress Assessment of Improvement Pt remains very concerned about his progress and feels that his cannot hear him at all and it is negatively impacting her quality of life. Pt did purchase a personal amplification device which he did not initially like, but he has ordered a [employer] for it. Pt is interested in exploring SpeechVive device and stated his son may be able to help him trial the anjali. During functional phrase practice with tapping, Rao was able to produce functional phrases at an intelligible pace with increased cues from CARRIAGE OPERATOR. However, he was clearly becoming fatigued by the motor planning component of trying to time the tapping and control his hand movements. Therefore, pacing strategy transitioned to the visual pacing strip. With visual pacing strip, pt was 100% intelligible at the sentence level independently. Focus then switched to conversational task in which the pt was approximately 80% intelligible given min cues. The pt needs cues to remember to take the time to individually touch each dot in order to maintain correct, deliberate pacing. Session did not focus on incorporating increased volume this session due to pt difficulty integrating both volume and pacing changes, but increased volume will need to be re- introduced next session. Pt' s homework includes: trial the SpeechVive anjali, try out the visual pacing strip at home, and look into social support groups through the hospital for behavioral [facility]. Pt also mentioned that he has still not heard anything about modified barium swallow order . CARRIAGE OPERATOR to follow up on this. Reviewed with Patient Progress Being Made,Home Exercise Program Patient/Caregiver Understanding Fair Plan Length of Session 30 Minutes Therapeutic Contents Articulation Training,Client Education,Home Exercise Program,Intelligibility,Voice Training Provided Patient/Caregiver Instruction Home Exercise Program
--- NOTE | 2023-12-12 12:08 | ST.OPTN ---
Visit Care Team Role Provider Type Nila Albarran PA-C Family Provider Advanced Spray Maker Primary Care Provider Address: [address] [place] [address], [phone] Rachell Mullins MD Attending Provider Non-Staff Referring Provider Address: [address] [place], [address] EVENT MARKETING ASSISTANT Treatment Note EVENT MARKETING ASSISTANT Treatment Note Start: 10/09/23 16:58 Freq: Status: Active Protocol: Document 12/12/23 11:57 CG (Rec: 12/12/23 12:08 CG [id number]) Speech Pathology Treatment Note Session Time Visit Start Time 09:45 Visit Stop Time 10:30 Total Visit Minutes 45 Visit Information Visit Number 9 Plan of Care Dates 10/01/23-12/30/23 Setting Treatment Setting Outpatient Care Next Note Type Next Note Type Treatment Note General Information Patient History Rao Fitzpatrick is a 73 year old male receiving voice/motor speech tx at this clinic due to concerns of reduced intelligibility and loudness secondary to Parkinson's. He was accompanied by his , Gwen. When asked to discuss his concerns with speech, he expressed that his speech is mumbly and quiet. His has difficulty hearing him and understanding his speech. She also wears hearing aids, but her neonatal critical care nurse reports that her hearing is WFL with hearing aids. He also reports that he has had some difficulty swallowing. Occasionally, he feels like he cannot initiate a swallow on solid foods. He reports no difficulties with liquids. He has not had an MBSS, nor a clinical swallow evaluation; he has never seen an EVENT MARKETING ASSISTANT in the past. Currently has a referral in place to start PT in October. He and his have heard of the [facility]/ Speak Out programs but have not pursued these. His goal is to be able to be heard and understood by others, particularly his . Subjective Observations/Patient Presentation Pt arrived on time to his appointment, which he attended with his . He utilized a wheelchair to mobilize to the treatment room this session. His speech presented as more intelligible today than in previous sessions. Objective Short Term Goals 1. 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 2. Pt will benefit from instruction in use of pacing strip to increase intelligibility. 3. Pt will complete diaphragmatic inhale/exhale exercises at a ratio of 6s inhale, 12s exhale on 4. Pt will complete home exercises to increase loudness (i.e. PhorTE, LSVT) in 80% of opportunities as measured by patient report. 5. Pt will increase maximum sustained phonation time to 12 seconds with an average intensity level of at least 70dB. 6. Pt and spouse will benefit from education re vocal health and physiology of voicing in order to increase awareness of deficits and self- monitor voice performance. 7. Pt will complete outpatient Modified Barium Swallow Study for objective evaluation of swallow function. Half-Way Goals 1. Pt will increase sustained phonation time to 15s with an average intensity of at least 75dB. Treatment Activities Discussed carrover with pacing board at home and modified based on pt and report. Discussed SpeechVive - pt may only benefit if able to use bone conduction for SpeechVive ; may rule this out as an option. Discussed DME order for personal amplifier. Sustained phonation trials. Structured conversation practice with modified pacing strip and visual cues ( multicolor signs for slower and louder). Assessment Patient Response to Treatment Good Impairments Identified Speech,Voice Progress Towards Goals Slow Progress Assessment of Improvement Pt and stated that the pt was still having difficulty with pacing even with visual pacing strip. Pacing strip was modified to be only two dots, farther apart from one another, to force a slower pace. During structured conversation practice with two dot pacing strip, pt had much more success with this modified pacer. He was at least 90% intelligible throughout the session today when utilizing the pacing strip. Given min visual cues (signs being held up by EVENT MARKETING ASSISTANT), pt's intelligibility was 100%. Discussed the need to continue practicing and using cues at home. Signs were given to pt's to use for practice. Additionally, discussed need to face one another when speaking for added visual input. EVENT MARKETING ASSISTANT, pt, and pt's PCP are collaborating on DME order for a personal amplification device such as the [employer] which may be higher fidelity and more effective as an amplification device for the pt. He is unable to maintain loudness throughout the day due to vocal fatigue, particularly when his medications begin to wear off before he is due for the next dose. Plan is to pause tx for a month to allow time for more home practice and obtaining DME order. POC to be updated to reflect this change. Reviewed with Patient Progress Being Made,Home Exercise Program Patient/Caregiver Understanding Fair Plan Length of Session 30 Minutes Therapeutic Contents Articulation Training,Client Education,Home Exercise Program,Intelligibility,Voice Training Provided Patient/Caregiver Instruction Home Exercise Program
--- NOTE | 2023-12-12 16:05 | ST.OPPOC ---
Physical, Occupational & Speech Therapy At [facility] Visit Care Team Role Provider Type Nila Albarran PA-C Family Provider Advanced Sports Clerk Primary Care Provider Address: [address] [place], [address] Rachell Mullins MD Attending Provider Non-Staff Referring Provider Address: [address] [place], [address] Speech Pathology Plan of Care Plan of Care Dates 12/12/23-03/13/[address] Rachell Mullins Patient History Rao Fitzpatrick is a 73 year old male receiving voice/motor speech tx at this clinic due to concerns of reduced intelligibility and loudness secondary to Parkinson's. He was accompanied by his , Gwen. When asked to discuss his concerns with speech, he expressed that his speech is mumbly and quiet. His has difficulty hearing him and understanding his speech. She also wears hearing aids, but her silk screen printer reports that her hearing is WFL with hearing aids. He also reports that he has had some difficulty swallowing. Occasionally, he feels like he cannot initiate a swallow on solid foods. He reports no difficulties with liquids. He has not had an MBSS, nor a clinical swallow evaluation; he has never seen an SHOE CEMENTER in the past. Currently has a referral in place to start PT in October. He and his have heard of the [facility]/ Speak Out programs but have not pursued these. His goal is to be able to be heard and understood by others, particularly his . POC is being updated 12/12/23 to reflect new plan, which is to allow time for pt to receive DME order for dedicated voice amplifier. Impairments Identified Speech,Voice Progress Towards Goals Slow Progress Voice/Resonance Prognosis Fair Voice/Resonance Yes Recommendations Short Term Goals 1. Pt will complete diaphragmatic inhale/exhale exercises at a ratio of 6s inhale, 12s exhale on /s/. 2. Pt will complete home exercises to increase loudness (i.e. PhorTE, LSVT) in 80% of opportunities as measured by patient report. 3. Pt will increase maximum sustained phonation time to 12 seconds with an average intensity level of at least 70dB. 4. Pt and spouse will benefit from education re vocal health and physiology of voicing in order to increase awareness of deficits and self- monitor voice performance. 5. Pt will complete outpatient Modified Barium Swallow Study for objective evaluation of swallow function. Short Term Goals 1. 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 2. Pt will benefit from instruction in use of pacing strip to increase intelligibility. 3. Pt will complete outpatient Modified Barium Swallow Study for objective evaluation of swallow function. 4. 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 Discontinued goals: 1. Pt will complete diaphragmatic inhale/exhale exercises at a ratio of 6s inhale, 12s exhale 2. Pt will complete home exercises to increase loudness (i.e. PhorTE, LSVT) in 80% of opportunities as measured by patient report. 3. Pt will increase maximum sustained phonation time to 12 seconds with an average intensity level of at least 70dB. 4. Pt and spouse will benefit from education re vocal health and physiology of voicing in order to increase awareness of deficits and self- monitor voice performance. Project Architect Goals 1. Pt will increase speech intelligibility to 90 % across contexts. Discontinued: Pt will increase sustained phonation time to 15s with an average intensity of at least 75dB. Comment: Electronically Signed by: KAYLAH Maddox 12/18/23 9089 If you are in agreement with this Plan of Care, please return a signed and dated copy. I have reviewed this Plan of Care and certify that the skilled therapy services above are required to meet the patient?s needs. Physician Signature Date Printed Name and Credentials Clinical Instructor Signature Printed Name and Credentials
--- NOTE | 2024-08-27 10:19 | ST.OPDS ---
Visit Care Team Role Provider Type Nila Albarran PA-C Family Provider Advanced Helper/Driver Primary Care Provider Address: [address] [place] [address], [id number] Rachell Mullins MD Attending Provider Non-Staff Referring Provider Address: [place], [address] APPRENTICE PAINTER BRUSH Discharge Note APPRENTICE PAINTER BRUSH Discharge Note Start: 10/09/23 16:58 Freq: Status: Active Protocol: Document 08/27/24 10:17 CG (Rec: 08/27/24 10:19 CG [id number]) Speech Pathology Treatment Note Session Time Visit Start Time 09:45 Visit Stop Time 10:30 Total Visit Minutes 45 Visit Information Visit Number 9 Plan of Care Dates 12/12/23-03/13/24 Setting Treatment Setting Outpatient Care Visit Type Note Type Discharge Summary General Information Patient History Rao Fitzpatrick is a 73 year old male receiving voice/motor speech tx at this clinic due to concerns of reduced intelligibility and loudness secondary to Parkinson's. He was accompanied by his , Gwen. When asked to discuss his concerns with speech, he expressed that his speech is mumbly and quiet. His has difficulty hearing him and understanding his speech. She also wears hearing aids, but her automobile seat cover installer reports that her hearing is WFL with hearing aids. He also reports that he has had some difficulty swallowing. Occasionally, he feels like he cannot initiate a swallow on solid foods. He reports no difficulties with liquids. He has not had an MBSS, nor a clinical swallow evaluation; he has never seen an APPRENTICE PAINTER BRUSH in the past. Currently has a referral in place to start PT in October. He and his have heard of the [employer]/ Speak Out programs but have not pursued these. His goal is to be able to be heard and understood by others, particularly his . POC is being updated 12/12/23 to reflect new plan, which is to allow time for pt to receive DME order for dedicated voice amplifier. Objective Short Term Goals 1. 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 2. Pt will benefit from instruction in use of pacing strip to increase intelligibility. 3. Pt will complete outpatient Modified Barium Swallow Study for objective evaluation of swallow function. 4. 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 Discontinued goals: 1. Pt will complete diaphragmatic inhale/exhale exercises at a ratio of 6s inhale, 12s exhale 2. Pt will complete home exercises to increase loudness (i.e. PhorTE, LSVT) in 80% of opportunities as measured by patient report. 3. Pt will increase maximum sustained phonation time to 12 seconds with an average intensity level of at least 70dB. 4. Pt and spouse will benefit from education re vocal health and physiology of voicing in order to increase awareness of deficits and self- monitor voice performance. Long-Term Goals 1. Pt will increase speech intelligibility to 90% across contexts. Discontinued: Pt will increase sustained phonation time to 15s with an average intensity of at least 75dB. Assessment Patient Response to Treatment Good Impairments Identified Speech,Voice Progress Towards Goals Slow Progress Assessment of Improvement Pt is making progress with use of pacing strip, increased loudness, and exaggerated articulation in order to increase speech intelligibility. APPRENTICE PAINTER BRUSH, pt, and pt's PCP are collaborating on DME order for a personal amplification device such as the [employer]ter[employer]ox which may be higher fidelity and more effective as an amplification device for the pt than the one he currently owns. He is unable to maintain loudness throughout the day due to vocal fatigue, particularly when his medications begin to wear off before he is due for the next dose. Plan was to pause tx for a month to allow time for more home practice and obtaining DME order. Since last session on December 18, 2023, pt has not followed up to schedule more appointments. D /c account at this time. Reviewed with Patient Progress Being Made,Home Exercise Program Patient/Caregiver Understanding Fair Plan Length of Session 30 Minutes Therapeutic Contents Articulation Training,Client Education,Home Exercise Program,Intelligibility,Voice Training Provided Patient/Caregiver Instruction Home Exercise Program Therapy Recommendations Discharge from Speech Therapy
== END 2024-09-03 10:49 | disposition home or self-care (01) ==
LOC: SP 10:30
PROVIDERS: Family Provider Physician Assistant; PCP Physician Assistant; Referring Provider Psychiatry & Neurology Neurology; Visit Provider Psychiatry & Neurology Neurology
DX: G20.C Parkinsonism, unspecified (principal)
CPT/HCPCS: 92507; 92522; 92524

== ENCOUNTER 2024-06-16 15:32 | Emergency (ER) | payer MEDICARE, SELFPAY ==
[2024-06-16] VITALS (10 sets, daily range): BP systolic 132–153; BP diastolic 68–84; PULSE 60–74; RESP 15–28; TEMP 36.8; O2SAT 97–99; BMI 27.2
--- NOTE | 2024-06-16 15:41 | DI.RAD.S_ITS ---
PROCEDURE: XR CHEST 1V INDICATIONS: chest pain TECHNIQUE: One view of the chest was acquired. COMPARISON: None. FINDINGS: Surgical changes and devices: None. Lungs and pleura: Lungs are clear. No pleural effusions or pneumothorax. Mediastinum: Mediastinal contours appear normal. Heart size is normal. Bones and chest wall: No suspicious bony lesions. Overlying soft tissues appear unremarkable. IMPRESSION: No acute pulmonary process. Dictated by: Annamaria Garcia M.D. on 06/16/2024 at 17:14 Approved by: Annamaria Garcia M.D. on 06/16/2024 at 17:14
--- NOTE | 2024-06-16 15:41 | EKG_ITS ---
[place] [address] [address], [place] [address] Test Date: 2024-06-16 Pat Name: Rao Fitzpatrick Department: Room: Gender: Male Edge Dyer: : 1950 Requested By: Order Number: [id number] Reading MD: Martin Escobedo MD Measurements Intervals [place] Rate: 65 P: 42 [place]: 196 QRS: 21 QRSD: 78 T: 35 QT: 396 QTc: 411 Interpretive Statements Normal sinus rhythm Electronically Signed On 06-17-2024 7:20:28 PST by Martin Escobedo MD
[2024-06-16 16:09] LABS: Add Manual Diff / Slide Review NO; Basophils Absolute Auto 0 /uL (0-100); Basophils Percent Auto 0.5 % (0-2); Eosinophils Absolute Auto 200 /uL (0-450); Eosinophils Percent Auto 2.8 % (2-4); Hematocrit 40.3 % (41-53); Hemoglobin 13.5 g/dL (13.5-17.5); Lymphocytes Absolute Auto 1500 /uL (1100-4500); Lymphocytes Percent Auto 24.9 % (25-40); Mean Corpuscular HGB Conc 33.5 % (30-36); Mean Corpuscular Volume 95.4 fL (80-100); Monocytes Absolute Auto 500 /uL (0-900); Monocytes Percent Auto 8.2 % (3-14); Neutrophils Absolute Auto 3900 /uL (1500-7000); Neutrophils Percent Auto 63.6 % (50-75); Platelet Count 187 X10^3/uL (150-400); Red Blood Cell Count 4.23 X10^6/uL (4.5-5.9); White Blood Cell Count 6.1 X10^3/uL (4.5-11.0)
[2024-06-16 16:19] LABS: Prothrombin Time 11.8 SECONDS (9.4-12.5)
[2024-06-16 16:21] LABS: PTT Partial Thromboplastin Tim 34 SECONDS (25.1-36.5)
[2024-06-16 16:23] LABS: Alanine Aminotransferase 10 IU/L (<50); Albumin Globulin Ratio 1.4 (1.0-2.8); Alkaline Phosphatase 42 U/L (38-126); Aspartate Aminotransferase 43 IU/L (17-59); BUN Creatinine Ratio 21.3 (6-22); Bilirubin Total 0.7 mg/dL (0.2-1.3); Blood Urea Nitrogen 20 mg/dL (9-20); Calcium 9.3 mg/dL (8.4-10.2); Carbon Dioxide 30 mmol/L (22-32); Chloride 105 mmol/L (98-107); Creatine Kinase 534 U/L (55-170); Estimated Glomerular Filt Rate > 60 mL/min (>60); Globulin 2.8 g/dL (1.7-4.1); Glucose 94 mg/dL (80-110); HEMOLYSIS < 15 (0-50); Lipase 44 U/L (23-300); Magnesium 2.2 mg/dL (1.6-2.3); Potassium 3.9 mmol/L (3.4-5.1); Sodium 138 mmol/L (137-145); Total Protein 6.8 g/dL (6.3-8.2)
[2024-06-16 16:34] LABS: NT-proBNP (BNP-Adult 18+) 106 pg/mL (<450); Troponin I < 0.012 ng/mL (0.01-0.034)
--- NOTE | 2024-06-16 17:51 | ED_ITS ---
HPI - Syncope General Chief Complaint: Dizziness Stated Complaint: Low BP, Dizzyness Time Seen by Provider: 06/16/24 15:42 Source: patient Mode of arrival: Ambulatory Limitations: no limitations History of Present Illness HPI narrative: Patient is a 74-year-old male with history of Parkinson's, hypertension, hyperlipidemia, presents to the emergency department from home with for evaluation of lightheaded dizziness, syncope. He states that approximately 2 days ago he was seated at home was attempting to stand up on his stool and felt lightheaded believes he passed out but did not fall hit his head. States that his was there make sure he did not fall. States that if during and after not experiencing any headache disturbances chest pain shortness breath fever chills nausea vomiting abdominal pain or any other GI/ symptoms at this time. He states that when this happened he believed his blood pressure was low. He states that this has happened in the past a few times but never fully passed out of therefore he decided come into the ED for further evaluation treatment. Related Data Home Medications Medication Instructions Recorded Confirmed amlodipine 5 mg tablet 5 mg PO DAILY 01/23/22 05/01/22 carbidopa 10 mg-levodopa 100 mg 2 tab PO QID 01/23/22 05/01/22 tablet carbidopa 25 mg-levodopa 100 mg 1 tab PO QID 01/23/22 05/01/22 disintegrating tablet entacapone 200 mg tablet 200 mg PO QID 01/23/22 05/01/22 rasagiline 1 mg tablet 1 mg PO DAILY 01/23/22 05/01/22 simvastatin 40 mg tablet 40 mg PO DAILY 01/23/22 05/01/22 ResMed AirSense 11 05/01/22 05/01/22 Previous Rx's Medication Instructions Recorded cefprozil 250 mg tablet 250 mg PO Q12H #20 tabs 12/30/16 Allergies Allergy/AdvReac Type Severity Reaction Status Date / Time No Known Allergies Allergy Uncoded 05/01/22 10:32 Review of Systems Review of Systems Narrative: General: Denies fever, chills, weight loss HEENT: Denies headache, eye drainage, eye irritation, head trauma, sore throat, voice change Cardiovascular: Denies any chest pain, palpitations, shortness of breath, tachycardia Respiratory: Denies any shortness of breath, cough, wheeze, stridor GI/: Denies any abdominal pain, nausea, vomiting, diarrhea, bright red blood per rectum, melanotic stools, urinary frequency, urinary retention, dysuria, hematuria MSK: Denies any joint pain, muscle pains, swelling Skin: Denies any rashes, lesions, discoloration Neuro: Positive syncope, Denies any headache, lightheadedness, dizziness, fainting, weakness Psych: Denies SI/HI Patient History Medical History Obstructive sleep apnea (adult) (pediatric) Social History Smoking Status: Never smoker Smoking Status: Never smoker alcohol intake frequency: other Substance Use Type: does not use Exam Narrative Exam Narrative: General: Cooperative, comfortable, well-developed, not in acute distress HEENT: Normocephalic, atraumatic, PERRLA, normal sclera, eyelids normal, Neck: Active full range of motion, atraumatic Chest: Normal to inspection, negative crepitus, no overlying erythema ecchymosis Respiratory: Normal respiratory effort, not in acute respiratory distress, clear to auscultation bilaterally negative cough, wheeze, tachypnea, rhonchi, rales Cardiology: Regular rate rhythm negative gallop, murmur, rubs GI/: Normal to inspection, soft, nonrigid, no tenderness to palpation, exam deferred MSK: Full range of active range of motion of all 4 extremities, atraumatic Skin: No rashes lesions noted Neuro: Patient at baseline history of Parkinson's therefore some mild stuttering, Alert awake oriented x3, moves all 4 extremities spontaneously, cranial nerves intact, able to answer all questions appropriately follows commands appropriately Psych: Cooperative, negative suicidal or homicidal ideations Initial Vital Signs Initial Vital Signs: Vital Signs Pulse Rate 74 06/16/24 15:37 Pulse Oximetry 97 06/16/24 15:37 Course Orders Ordered: ED Orders 06/16/24 15:40 Complete Blood Count AUTO DIFF Stat Comprehensive Metabolic Panel Stat Lipase Stat Magnesium Stat NT-proBNP (BNP-Adult 18+) Stat PTT Partial Thromboplastin Joe Stat Prothrombin Time INR Stat Troponin & CK Cardiac Panel Stat 06/16/24 15:41 XR chest 1V Stat EKG-12 Lead Stat Vital Signs Vital signs: Vital Signs - 8 hr 06/16/24 15:37 06/16/24 15:38 06/16/24 15:38 Temperature Pulse Rate 74 69 Respiratory Rate 28 H Blood Pressure 143/78 H Pulse Oximetry 97 97 Oxygen Delivery Method 06/16/24 15:42 06/16/24 16:00 06/16/24 16:01 Temperature 98.3 F Pulse Rate 66 64 64 Respiratory Rate 18 20 23 Blood Pressure 143/78 H Pulse Oximetry 98 97 97 Oxygen Delivery Method Room Air Room Air 06/16/24 16:01 06/16/24 16:30 06/16/24 16:30 Temperature Pulse Rate 61 Respiratory Rate 15 Blood Pressure 139/68 132/74 Pulse Oximetry 98 Oxygen Delivery Method 06/16/24 17:00 06/16/24 17:00 Temperature Pulse Rate 62 Respiratory Rate 17 Blood Pressure 135/74 Pulse Oximetry 98 Oxygen Delivery Method Room Air MDM - Syncope Differential Diagnosis Differential diagnosis: Likely syncope due to orthostatic hypotension, vasovagal syncope, complete atrioventricular block, dehydration and other (Electrolyte abnormality, ACS, pneumonia) Lab Data 06/16/24 15:40 06/16/24 15:40 Labs: Lab Results 06/16/24 Range/Units 15:40 WBC 6.1 (4.5-11.0) X10^3/uL RBC 4.23 L (4.5-5.9) X10^6/uL Hgb 13.5 (13.5-17.5) g/dL Hct 40.3 L (41-53) % MCV 95.4 (80-100) fL MCH 32.0 (26-34) PG MCHC 33.5 (30-36) % RDW 14.0 (11.6-14.8) % Plt Count 187 (150-400) X10^3/uL Neut % (Auto) 63.6 (50-75) % Lymph % (Auto) 24.9 L (25-40) % Rankin % (Auto) 8.2 (3-14) % Eos % (Auto) 2.8 (2-4) % Baso % (Auto) 0.5 (0-2) % Neut # (Auto) 3900 (6014-9486) /uL Lymph # (Auto) 1500 (8494-1885) /uL Rankin # (Auto) 500 (0-900) /uL Eos # (Auto) 200 (0-450) /uL Baso # (Auto) 0 (0-100) /uL PT 11.8 (9.4-12.5) SECONDS INR 1.0 (0.9-1.3) APTT 34 (25.1-36.5) SECONDS Sodium 138 (137-145) mmol/L Potassium 3.9 (3.4-5.1) mmol/L Chloride 105 (98-107) mmol/L Carbon Dioxide 30 (22-32) mmol/L BUN 20 (9-20) mg/dL Creatinine 0.94 (0.66-1.25) mg/dL Estimated GFR > 60 (>60) mL/min BUN/Creatinine Ratio 21.3 (6-22) Glucose 94 (80-110) mg/dL Calcium 9.3 (8.4-10.2) mg/dL Magnesium 2.2 (1.6-2.3) mg/dL Total Bilirubin 0.7 (0.2-1.3) mg/dL AST 43 (17-59) IU/L ALT 10 (<50) IU/L Alkaline Phosphatase 42 (38-126) U/L Total Creatine Kinase 534 H (55-170) U/L Troponin I < 0.012 (0.01-0.034) ng/mL NT-Pro-B Natriuret Pep 106 (<450) pg/mL Total Protein 6.8 (6.3-8.2) g/dL Albumin 4.0 (3.5-5.0) g/dL Globulin 2.8 (1.7-4.1) g/dL Albumin/Globulin Ratio 1.4 (1.0-2.8) Lipase 44 (23-300) U/L Imaging Data Chest x-ray: Radiologist's Impression: [address] [address] XRay Report Signed Patient: Rao Fitzpatrick MR#: [id number] : 1950 Acct:[id number] Age/Sex: 74 / M Date of Service: 06/16/24 Loc: ED Accession Number: [id number] Procedure: XR chest 1V Ordering Provider: Ermelinda Nugent MD PROCEDURE: XR CHEST 1V INDICATIONS: chest pain TECHNIQUE: One view of the chest was acquired. COMPARISON: None. FINDINGS: Surgical changes and devices: None. Lungs and pleura: Lungs are clear. No pleural effusions or pneumothorax. Mediastinum: Mediastinal contours appear normal. Heart size is normal. Bones and chest wall: No suspicious bony lesions. Overlying soft tissues appear unremarkable. IMPRESSION: No acute pulmonary process. ECG Data Interpretation: EKG interpreted ED physician, sinus at 65 beats per minute, QTC 411, normal axis, nonspecific ST changes, no STEMI MDM Narrative Medical decision making narrative: Patient is a 74-year-old male history of hypertension hyperlipidemia Parkinson's presents with for evaluation of syncopal event. This happened when he was attempting to stand from a stool. States that he felt lightheaded dizzy passed out was there states he did not fall hit his head. No chest pain shortness of breath prior during thereafter. Patient did lab work performed here, no acute findings to his electrolytes, troponin negative, EKG nonischemic. [place] syncope -2. Patient was instructed to follow up with PCP, neurology and Cardiology in outpatient setting. He was given strict return precautions he verbalized understanding of this and agrees to being discharged home with outpatient follow up. Discharge Plan Departure Patient Disposition: Home Clinical Impression: Syncope Activity Restrictions/Additional Instructions: Please follow up with primary care, Cardiology and Neurology Please read the discharge instructions sheet carefully and bring all papers to all doctor follow-up visits, as it may contain information that your doctor may want to see. Disease processes change and evolve, if your symptoms worsen or if you develop any new symptoms that are concerning to you please return for evaluation. Your evaluation today does not show any evidence of any life- threatening/serious illnesses requiring admission to the hospital or surgery. Please follow-up with your doctor for re-evaluation in approximately 1 day. Seek immediate medical attention for any worrisome symptoms. Prescriptions: No Action cefprozil 250 MG tablet 250 mg PO Q12H Qty: 20 0RF entacapone 200 mg tablet 200 mg PO QID Rx Instructions: administer at the same time as l-dopa/carbidopa dose carbidopa-levodopa 25-100 mg tablet,disintegrating 1 tab PO QID carbidopa-levodopa 10-100 mg tablet 2 tab PO QID rasagiline 1 mg tablet 1 mg PO DAILY simvastatin 40 mg tablet 40 mg PO DAILY amlodipine 5 mg tablet 5 mg PO DAILY (DME) ResMed AirSense 11 See Rx Instructions .ROUTE .MEDSUPPLY Rx Instructions: CPAP Min: 5 Max: 15 DME: Kellie ELIE: 03/09/22 Referrals: Donell Mustafa MD [Physician] - Nila Albarran PA-C [Primary Care Provider] - Stand Alone Forms: Patient Portal/API/Survey
== END 2024-06-16 18:42 | disposition home or self-care (01) ==
PROVIDERS: Emergency Medicine; Emergency Provider Student in an Organized Health Care Education/Training Program; Family Provider Physician Assistant; PCP Physician Assistant
DX: R55 Syncope and collapse (principal); R07.9 Chest pain, unspecified; R42 Dizziness and giddiness; G20.A1 Parkinson's disease without dyskinesia, without mention of fluctuations
CPT/HCPCS: 36415; 71045; 80053; 82550; 83690; 83735; 83880; 84484; 85025; 85610; 85730; 93005; 93010; 99283; 99284